=== PATIENT | male | born 1965 | race Caucasian/White ===

== ENCOUNTER → 2025-04-23 | Day surgery (SDC) | payer OTHER ==
[~2025-04-23] MED LIST: FENTANYL CITRATE/PF 100MCG/2 ML INJ ONE; LIDOCAINE HCL 2% LOCAL INJ 5 ML SDV VIAL INJ ONE; PROPOFOL IV EMULSION 10 MG/ML 20 ML VIAL ONE; PROPOFOL IV EMULSION 50 ML IV ONE; ZESTRIL10 MG PO
[2025-04-23] MEDS: LACTATED RINGER'S 1,000 ML ONE (11:58)
[2025-04-23 13:31] VITALS: TEMP 97
[2025-04-23 13:45] VITALS: BP 125/78; PULSE 80; RESP 16; O2SAT 97
== END | disposition home or self-care (01) ==
LOC: OR 09:50
PROVIDERS: ATTEND Internal Medicine Gastroenterology
DX: Z12.11 Encounter for screening for malignant neoplasm of colon (principal); D12.2 Benign neoplasm of ascending colon; K62.1 Rectal polyp; K57.30 Diverticulosis of large intestine without perforation or abscess without bleeding; K64.8 Other hemorrhoids; K21.9 Gastro-esophageal reflux disease without esophagitis; K56.609 Unspecified intestinal obstruction, unspecified as to partial versus complete obstruction; G47.33 Obstructive sleep apnea (adult) (pediatric); Z71.89 Other specified counseling; I10 Essential (primary) hypertension; N20.0 Calculus of kidney; Z88.0 Allergy status to penicillin; Z01.810 Encounter for preprocedural cardiovascular examination; Z79.899 Other long term (current) drug therapy; Z68.28 Body mass index [BMI] 28.0-28.9, adult; Z71.3 Dietary counseling and surveillance; Z91.81 History of falling
CPT/HCPCS: 45385; 93005; J2003; J2704 ×2; J3010; J7121; 45378

== ENCOUNTER 2025-06-16 14:28 | Emergency (ER) | payer OTHER ==
[~2025-06-16] VITALS: Ht 182.9 cm; Wt 96.4 kg
[~2025-06-16 14:28] MED LIST changes: -FENTANYL CITRATE/PF 100MCG/2 ML INJ ONE; -LIDOCAINE HCL 2% LOCAL INJ 5 ML SDV VIAL INJ ONE; -PROPOFOL IV EMULSION 10 MG/ML 20 ML VIAL ONE; -PROPOFOL IV EMULSION 50 ML IV ONE
[2025-06-16 14:30] VITALS: PULSE 89; RESP 18; TEMP 98.5; O2SAT 95
[2025-06-16] MEDS ORDERED: IBUPROFEN600 MG PO (14:56)
[2025-06-16] MEDS ORDERED: TYLENOL325 MG PO (14:56)
[2025-06-16] MEDS: IBUPROFEN 200 MG TAB PO ONE (14:58)
== END 2025-06-16 15:22 | disposition home or self-care (01) ==
LOC: FSED 14:38
DX: S56.911A Strain of unspecified muscles, fascia and tendons at forearm level, right arm, initial encounter (principal); X50.9XXA Other and unspecified overexertion or strenuous movements or postures, initial encounter; I10 Essential (primary) hypertension
CPT/HCPCS: 99284